=== PATIENT | female | born 1990 | race African-American/Black ===

== ENCOUNTER 2017-01-17 08:58 | Emergency (ER) | payer SELFPAY ==
[~2017-01-17] VITALS: Ht 165.1 cm; Wt 65.0 kg
[2017-01-17 09:07] VITALS: BP 138/66; PULSE 94; RESP 15; TEMP 98.2; O2SAT 98
--- NOTE | 2017-01-17 09:25 | PD ---
HPI Chief Complaint: Skin Problem Time Seen by Provider: 09:09 Travel History International Travel<30 days: No Contact w/Intl Traveler<30days: No Traveled to known affect area: No History of Present Illness HPI The patient was seen and examined in the presence of the nurse. This patient complains of rash. Duration 2 days. Primarily on her torso. He has a bit of itching. No fever PFSH Past Medical History ?: Not Social History Alcohol Use: No Tobacco Use: No Substance Use: No Allergies-Medications (Allergen,Severity, Reaction): Coded Allergies: No Known Allergies (Unverified , 01/17/17) Reported Meds & Prescriptions Reported Meds & Active Scripts Active No Active Prescriptions or Reported Medications Review of Systems General / Constitutional: No: Fever HENT: No: Headaches Cardiovascular: No: Chest Pain or Discomfort Physical Exam Narrative GASTROINTESTINAL: Abdomen soft, non-tender, nondistended. Positive bowel sounds. No hepato-splenomegaly, or palpable masses. No guarding. Psych: Normal mood and affect. Normal insight and judgment. Skin: Some hyperpigmented papules on the torso They don't look infectious or allergic Data Data Last Documented VS Vital Signs Date Time Temp Pulse Resp B/P (MAP) Pulse Ox O2 Delivery O2 Flow Rate FiO2 01/17/17 09:07 98.2 94 15 138/66 (90) 98 MDM Medical Decision Making Medical Screen Exam Complete: Yes Emergency Medical Condition: Yes Medical Record Reviewed: Yes Differential Diagnosis Dermatitis, allergic reaction, eczema Narrative Course I have reviewed the patient's electronic medical record. Etiology of the rash is unclear It looks rather nonspecific Recommend she follow up with primary care or selling manager Diagnosis Primary Impression: Rash and nonspecific skin eruption Additional Instructions: The patient was advised to follow up with their physician and return if they worsen. Med/Other Pt SpecificInfo: Other Scripts No Active Prescriptions or Reported Meds Disposition: 01 DISCHARGE HOME Condition: Stable Du Ortega MD Jan 17, 2017 09:25
== END 2017-01-17 10:03 | disposition home or self-care (01) ==
LOC: NEPD 08:58
DX: R21 Rash and other nonspecific skin eruption (principal)
CPT/HCPCS: 99281